=== PATIENT | female | born 1970 | race Caucasian/White ===

== ENCOUNTER 2020-05-19 17:24 | Emergency (ER) | payer MEDICAID, SELFPAY ==
[2020-05-19 17:26] VITALS: BP 155/82; PULSE 96; RESP 16; TEMP 36.6; O2SAT 98; BMI 29.8
--- NOTE | 2020-05-19 17:46 | CT_ITS ---
PROCEDURE: CT ABDOMEN PELVIS W CON CLINICAL INDICATION: abd pain Right upper quadrant pain radiating into COMPARISON: No exams were available for comparison TECHNIQUE: IV Contrast: 75ML OPTIRAY 350 Oral Contrast None Axial images obtained with sagittal and coronal reformats. All CT scans at the facility use one or more dose reduction, viz: automated exposure control, ma/kV adjustment per patient size (including targeted exams where dose is matched to indication, i.e. head), or iterative reconstruction technique. FINDINGS: LOWER THORAX: No acute finding ABDOMEN & PELVIS: 2 mm hypodensity noted in the hepatic dome on the left nonspecific. The gallbladder, spleen adrenal glands, pancreas, and kidneys have an unremarkable appearance. No intestinal obstruction, free air, pannus itis, diverticulitis. The uterus is enlarged and anteverted. The uterus measures 11 7.7 cm with an isodense mass along the right aspect of the uterine fundus 4.8 cm. Endometrial stripe is somewhat prominent and may contain some fluid measuring 7 mm in thickness. There is a complex mixed cystic and solid mass in the right adnexal region at 8 x 5 cm. No pelvic adenopathy or ascites evident. There is degenerative disc disease in the lumbar spine. Mild lumbar scoliosis convex left. 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 Gynecological consult suggested. Enlarged uterus with hypodense changes in the uterine fundus on the right consistent with fibroid and mild prominence of the endometrial stripe. Pelvic ultrasound suggested for further evaluation Dictated b Oswaldo Martin MD 05/20/2020 08:59 Oswaldo Martin MD in [facility] 05/20/2020 08:59
[2020-05-19 18:20] LABS: Microscopic, Urine URINE MICROSCOPIC (MICROSCOPIC)
[2020-05-19 18:26] LABS: Basophils # 0.1 K/mm3 (0-0.2); Basophils % 0.6 % (0.1-2.0); Eosinophils # 0.3 K/mm3 (0.0-0.4); Eosinophils % 3.5 % (0.1-12.0); Hematocrit 46.3 % (37.0-47.0); Hemoglobin 15.7 g/dL (12.2-16.2); Lymphocytes # 3.4 K/mm3 (0.7-4.5); Lymphocytes % 38.2 % (10-50); Mean Corpuscular Volume 88.3 fl (81-99); Mean Platelet Volume 8.3 fl (7.4-10.4); Monocytes # 0.3 K/mm3 (0.1-1.0); Monocytes % 3.2 % (1.7-9.3); Neutrophils # 4.9 K/mm3 (1.8-7.8); Neutrophils % 54.5 % (37.0-80.0); Platelet Count 284 K/mm3 (142-424); Red Blood Count 5.24 M/mm3 (4.20-5.40); Red Cell Distribution Width 13.5 % (11.5-17.5); White Blood Count 8.9 K/mm3 (4.8-10.8)
[2020-05-19 18:32] LABS: Alanine Aminotransferase 22 U/L (12-78); Albumin Level 4.7 g/dl (3.5-5.0); Albumin/Globulin Ratio 1.6 (1.1-1.8); Alkaline Phosphatase 96 U/L (38-126); Amylase 89 U/L (30-110); Anion Gap 16.1 mEq/L (5-15); Aspartate Amino Transferase 32 U/L (14-36); Bilirubin,Total 0.4 mg/dl (0.2-1.3); Blood Urea Nitrogen 10 mg/dl (7-17); Carbon Dioxide 27 mmol/L (22.0-30.0); Chloride 100 mmol/L (98-107); Creatinine Clearance Estimated 145 mL/min (50-200); Estimated Glomerular Filt Rate 105 ml/min (>60); GFR (African American) 127 ML/MIN (>60); Glucose 95 mg/dl (74-100); Lipase 130 U/L (23-300); Potassium 4.1 mmoL/L (3.5-5.1); Sodium 139 mmol/L (136-145); Total Protein,Serum 7.7 g/dl (6.3-8.2)
[2020-05-19 18:38] LABS: Appearance,Urine CLEAR (Clear); Bilirubin,Urine Negative (Negative); Blood, Urine Negative (Negative); Color,Urine YELLOW (Yellow); Glucose,Urine (UA) Negative (Negative); Ketones,Urine Negative (Negative); Leukocyte Esterase,Urine Negative (Negative); Nitrate,Urine Negative (Negative); Protein,Urine Negative (Negative); Specific Gravity, Urine 1.015 (1.005-1.030); Urobilinogen,Urine 0.2 EU/dl (0.2)
[2020-05-19 18:49] LABS: Urine Pregnancy, HCG Qual. Negative (Negative)
[2020-05-19 18:50] LABS: WBC,Urine Occasional #/hpf (0-3)
[2020-05-19 18:51] LABS: Bacteria,Urine Trace /lpf
[2020-05-19 19:26] VITALS: BP 137/77; PULSE 77; RESP 16; O2SAT 98
--- NOTE | 2020-05-19 19:33 | PC.NURSE ---
results received from yenny to . speaking with patient
--- NOTE | 2020-05-19 19:36 | HMH.EDABDPAI ---
ED Disposition Clinical Impression: Ovarian mass, right Disposition: Home, Self-Care Condition on Discharge: Good Instructions: DI for Acute Abdomen Additional Instructions: Please call Dr. Ulrich's office in the a.m. for a appointment. Referrals: PCP,Vero [Primary Care Provider] - Carmelina Ulrich MD [Staff Physician] - - Critical Care Critical Care Time: No Attestation: On 05/19/20, the high probability of a clinically significant, sudden or life threatening deterioration of the following system(s) required my full and direct attention, intervention and personal management. The time I documented below is in addition to time spent performing reported procedures but includes the following listed in this critical care notation. Medical Decision Making - Medical Records Medical records reviewed: Yes: I reviewed the patient's medical records. - Helio Inquiry Pt receiving controlled substance: No Vital Signs: 05/19/20 17:26 05/19/20 19:26 Temperature 98 F Temperature Source Oral Pulse Rate [Right] 96 H 77 Respiratory Rate 16 16 Blood Pressure [Right Arm] 155/82 H 137/77 Blood Pressure Mean [Right Arm] 106 97 Blood Pressure Source [Right Arm] Automatic Cuff Blood Pressure Position [Right Arm] Sitting 02 Sat by Pulse Oximetry 98 98 Oxygen Delivery Method Room Air - Lab Data Lab results reviewed: Yes: I reviewed the patient's lab results. Lab Results 05/19/20 18:00: Urine Color Yellow, Urine Appearance Clear, Urine pH 6.0, Ur Specific [place] 1.015, Urine Protein Negative, Urine Glucose (UA) Negative, Urine Ketones Negative, Urine Blood Negative, Urine Nitrate Negative, Urine Bilirubin Negative, Urine Urobilinogen 0.2, Ur Leukocyte Esterase Negative, Urine WBC Occasional, Ur Squamous Epith Cells 3-5, Urine Bacteria Trace 05/19/20 18:00: WBC 8.9, RBC 5.24, Hgb 15.7, Hct 46.3, MCV 88.3, MCH 30.0, MCHC 34.0, RDW 13.5, Plt Count 284, MPV 8.3, Neut % (Auto) 54.5, Lymph % (Auto) 38.2, [place] % (Auto) 3.2, Eos % (Auto) 3.5, Baso % (Auto) 0.6, Neut # (Auto) 4.9, Lymph # (Auto) 3.4, [place] # (Auto) 0.3, Eos # (Auto) 0.3, Baso # (Auto) 0.1 05/19/20 18:00: Sodium 139, Potassium 4.1, Chloride 100, Carbon Dioxide 27, Anion Gap 16.1 H, BUN 10, Creatinine 0.60, Estimated Creat Clear 145, Estimated GFR 105, Est GFR ( Amer) 127, Glucose 95, Calcium 10.0, Total Bilirubin 0.4, AST 32, ALT 22, Alkaline Phosphatase 96, Total Protein 7.7, Albumin 4.7, Globulin 3.0, Albumin/Globulin Ratio 1.6, Amylase 89, Lipase 130 05/19/20 18:00: Urine HCG, Qual Negative Result diagrams: 05/19/20 18:00 05/19/20 18:00 Orders (Tests/Meds): ED MEDICATIONS Generic Name Dose Route Start Last Admin Trade Name Freq PRN Reason Stop Dose Admin Sodium Chloride 8 ml 05/19/20 18:02 Sodium Chloride 0.9% 10ml Vial IV 06/18/20 18:01 NEEDED PRN dilute pepcid Discontinued Medications Generic Name Dose Route Start Last Admin Trade Name Freq PRN Reason Stop Dose Admin Famotidine 20 mg 05/19/20 18:02 05/19/20 18:11 Pepcid 20mg/2ml Vial IV 05/19/20 18:03 20 mg ONCE ONE Administration Ioversol 75 ml 05/19/20 19:06 05/19/20 19:09 Rad-Optiray 350 100ml Vial IV 05/19/20 19:07 75 ml ONCE ONE Administration Protocol Sodium Chloride 10 ml 05/19/20 19:06 05/19/20 19:09 Rad-Saline Flush 10ml Syringe IV 05/19/20 19:07 10 ml ONCE ONE Administration ORDERS Category Date Time Status CT abdomen pelvis w con Stat Cat Scan 05/19/20 17:46 Taken - CT Data CT Scan: Abdomen, Pelvis Time Received: 19:[address] Reviewed: Yes: I have reviewed the patient's CT results Preliminary Findings: Abnormal (7.5 cm complex right adnexal mass consistent with an ovarian neoplasm possibly malignant) Abdominal Pain HPI - General Chief Complaint: Abdominal Pain Stated Complaint: Pain R Side, in back Time Seen by Provider: 05/19/20 19:00 Mode of Arrival: Ambulatory Source of Information: Bernard Wood
--- NOTE | 2020-05-19 19:37 | PC.NURSE ---
dr higgins returned call.
[2020-05-19 20:03] VITALS: BP 142/63; PULSE 80; RESP 16; TEMP 36.6; O2SAT 97
[2020-05-21 11:20] LABS: Cancer Antigen (CA) 125 9.3 U/mL (0.0-38.1)
== END 2020-05-19 20:12 | disposition home or self-care (01) ==
PROVIDERS: Emergency Provider Family Medicine
DX: N83.8 Other noninflammatory disorders of ovary, fallopian tube and broad ligament (principal); Z88.2 Allergy status to sulfonamides
CPT/HCPCS: 74177; 80053; 81001; 81025; 82150; 83690; 85025; 86316; 96374; 99283; Q9967

== ENCOUNTER 2020-06-24 19:09 | Observation (INO) | payer MEDICAID, SELFPAY ==
[2020-06-24] VITALS (9 sets, daily range): BP systolic 119–147; BP diastolic 53–90; PULSE 16–125; RESP 16–18; TEMP 36.8; O2SAT 95–99; BMI 29.8; BMI 28.5
--- NOTE | 2020-06-24 19:18 | HMH.EDGENADL ---
ED Disposition Condition on Discharge: Good - Critical Care Critical Care Time: No <Fidel Nunez - Last Filed: 06/24/20 19:55> <Jesus Navarro - Last Filed: 06/24/20 22:25> Clinical Impression: Nausea vomiting and diarrhea, SBO (small bowel obstruction), SIRS (systemic inflammatory response syndrome) Abdominal pain Qualifiers: Abdominal location: epigastric Qualified Code(s): R10.13 - Epigastric pain Disposition: Admitted as Observation Referrals: PCP,No [Primary Care Provider] - Attestation: On 06/24/20, the high probability of a clinically significant, sudden or life threatening deterioration of the following system(s) required my full and direct attention, intervention and personal management. The time I documented below is in addition to time spent performing reported procedures but includes the following listed in this critical care notation. Medical Decision Making - Medical Records Medical records reviewed: Yes: I reviewed the patient's medical records. MR Comment: 50-year-old female presents emergency department with nausea, vomiting, diarrhea, and crampy abdominal pain. Had possible fever and mild intermittent cough at home. She arrives the ED hemodynamically stable, with reassuring vital signs, and looks well on exam. Given her recent surgery and complaint of no abdominal pain, will get labs including CT scan and reassess. She may need to be swabbed for coronavirus. Handed off at shift change to Dr. Navarro. - Helio Inquiry Pt receiving controlled substance: No <Fidel Nunez - Last Filed: 06/24/20 19:55> - Lab Data Lab results reviewed: Yes: I reviewed the patient's lab results. 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 Reason -: Pt condition Additional Consult: humaira Reason -: Pt condition Additional Consult: besson Reason -: Admission <Jesus Navarro - Last Filed: 06/24/20 22:25> Vital Signs: 06/24/20 19:22 06/24/20 19:30 06/24/20 20:41 Temperature 98.3 F Temperature Source Oral Pulse Rate [Right Brachial] 125 H 119 H 83 Respiratory Rate 17 18 16 Blood Pressure [Right Arm] 123/63 119/53 L 142/66 H Blood Pressure Mean [Right Arm] 83 75 91 Blood Pressure Source [Right Arm] Automatic Cuff Automatic Cuff Automatic Cuff Blood Pressure Position [Right Arm] Sitting Supine Sitting 02 Sat by Pulse Oximetry 96 97 96 Oxygen Delivery Method Room Air Room Air Room Air 06/24/20 21:10 06/24/20 21:30 06/24/20 21:57 Temperature Temperature Source Pulse Rate [Right Brachial] 16 L 82 94 H Respiratory Rate 17 17 16 Blood Pressure [Right Arm] 143/68 H 141/66 H 143/58 H Blood Pressure Mean [Right Arm] 93 91 86 Blood Pressure Source [Right Arm] Automatic Cuff Automatic Cuff Automatic Cuff Blood Pressure Position [Right Arm] Sitting Supine Sitting 02 Sat by Pulse Oximetry 95 95 96 Oxygen Delivery Method Room Air Room Air Room Air 06/24/20 22:00 Temperature Temperature Source Pulse Rate [Right Brachial] 92 H Respiratory Rate 17 Blood Pressure [Right Arm] 143/58 H Blood Pressure Mean [Right Arm] 86 Blood Pressure Source [Right Arm] Automatic Cuff Blood Pressure Position [Right Arm] Supine 02 Sat by Pulse Oximetry 98 Oxygen Delivery Method Room Air - Lab Data Lab Results 06/24/20 19:40: WBC 18.0 H, RBC 5.01, Hgb 14.2, Hct 43.6, MCV 87.0, MCH 28.4, MCHC 32.6, RDW 14.5, Plt Count 839 H, MPV 7.1 L, Neut % (Auto) 78.8, Lymph % (Auto) 15.8, [place] % (Auto) 2.8, Eos % (Auto) 2.3, Baso % (Auto) 0.4, Neut # (Auto) 14.2 H, Lymph # (Auto) 2.9, [place] # (Auto) 0.5, Eos # (Auto) 0.4, Baso # (Auto) 0.1, Total Counted 100, Neutrophils % (Manual) 74, Lymphocytes % (Manual) 23, Monocytes % (Manual) 3, Platelet Estimate Slight increase, RBC Morphology Normal 06/24/20 19:40
--- NOTE | 2020-06-24 19:33 | CT_ITS ---
PROCEDURE: CT ABDOMEN PELVIS W CON CLINICAL INDICATION: abd pain, needs IV contrast only Abdominal pain with nausea and vomiting, recent hysterectomy COMPARISON: CT CT ABDOMEN PELVIS W CON from 05/19/2020 TECHNIQUE: IV Contrast: 75ML OPTIRAY 350 Oral Contrast None Axial images obtained with sagittal and coronal reformats. All CT scans at the facility use one or more dose reduction, viz: automated exposure control, ma/kV adjustment per patient size (including targeted exams where dose is matched to indication, i.e. head), or iterative reconstruction technique. FINDINGS: LOWER THORAX: There are mild atelectatic changes in the left lung base. ABDOMEN & PELVIS: The liver, spleen, adrenal glands, and pancreas and kidneys have an unremarkable appearance. Gallbladder is somewhat distended. There is a small amount of perihepatic and perisplenic fluid. Proximal small bowel loops are mildly dilated measuring up to 3.7 cm with thickened edematous wall and air-fluid levels. The distal small bowel loops and colon are decompressed.. There has been an interval hysterectomy and right oophorectomy. Fluid is present in the pelvis. There is a small umbilical hernia containing fat. The fluid in the pelvic region is slightly more dense than the fluid in the perihepatic area and could be related to hemorrhage or infection or neoplasm. No definite intraperitoneal abscess. There is a new heterogeneous collection in the anterior lower pelvic area in the prevesical space indenting the urinary bladder between the rectus muscles anteriorly and may represent a postoperative hematoma slightly epicentered toward the right. This measures 6 by 4 cm by 4 cm. No acute bony findings. IMPRESSION: 1. Status post hysterectomy and right oophorectomy. Heterogeneous collection noted in the prevesical space slightly toward the right consistent with postoperative hematoma. Suggest follow-up to confirm resolution. Cannot exclude superimposed infection. 2. Abnormal appearance of the small bowel which is slightly dilated with scattered air-fluid levels with edematous wall. There is decompression of the distal small bowel. These findings could be related to either enteritis or partial small bowel obstruction. No free air is evident. 3. There is a small amount of intraperitoneal fluid which is somewhat hyperdense in the pelvic region which could be related to blood, infection, or neoplasm Dictated by: Oswaldo Martin MD 06/25/2020 05:43 Oswaldo Martin MD in [facility] 06/25/2020 05:43
[2020-06-24 19:49] LABS: Basophils # 0.1 K/mm3 (0-0.2); Basophils % 0.4 % (0.1-2.0); Eosinophils # 0.4 K/mm3 (0.0-0.4); Eosinophils % 2.3 % (0.1-12.0); Hematocrit 43.6 % (37.0-47.0); Hemoglobin 14.2 g/dL (12.2-16.2); Lymphocytes # 2.9 K/mm3 (0.7-4.5); Lymphocytes % 15.8 % (10-50); Mean Corpuscular HGB Conc 32.6 g/dL (31.8-35.4); Mean Corpuscular Hemoglobin 28.4 pg (27.0-31.2); Mean Platelet Volume 7.1 fl (7.4-10.4); Monocytes # 0.5 K/mm3 (0.1-1.0); Monocytes % 2.8 % (1.7-9.3); Neutrophils # 14.2 K/mm3 (1.8-7.8); Neutrophils % 78.8 % (37.0-80.0); Platelet Count 839 K/mm3 (142-424); Red Blood Count 5.01 M/mm3 (4.20-5.40); Red Cell Distribution Width 14.5 % (11.5-17.5)
[2020-06-24 20:00] LABS: Chloride 95 mmol/L (98-107); MANUAL DIFFERENTIAL MANUAL DIFFERENTIAL (MANUAL DIFF); Potassium 3.4 mmoL/L (3.5-5.1); Sodium 134 mmol/L (136-145)
[2020-06-24 20:02] LABS: Blood Urea Nitrogen 13 mg/dl (7-17); Creatinine Clearance Estimated 145 mL/min (50-200); Estimated Glomerular Filt Rate 105 ml/min (>60); GFR (African American) 127 ML/MIN (>60); Lipase 71 U/L (23-300)
[2020-06-24 20:03] LABS: Alanine Aminotransferase 19 U/L (12-78); Albumin Level 3.7 g/dl (3.5-5.0); Albumin/Globulin Ratio 1.3 (1.1-1.8); Alkaline Phosphatase 116 U/L (38-126); Anion Gap 13.4 mEq/L (5-15); Aspartate Amino Transferase 24 U/L (14-36); Bilirubin,Total 0.9 mg/dl (0.2-1.3); Calcium 9.6 mg/dl (8.4-10.2); Carbon Dioxide 29 mmol/L (22.0-30.0); Globulin 2.8 g/dL (1.3-3.2); Glucose 146 mg/dl (74-100); Lactic Acid 1.5 mmol/L (0.7-2.1); Total Protein,Serum 6.5 g/dl (6.3-8.2)
[2020-06-24 20:13] LABS: Lymphocytes % 23 % (10-50); Monocytes % 3 % (2-9); Neutrophils % 74 % (42-76); Total Cells Counted 100
[2020-06-24 20:14] LABS: Platelet Estimate Slight Increase; RBC Morphology Normal
--- NOTE | 2020-06-24 21:37 | PC.NURSE ---
calling [facility] to speak to dr. urena or who is [facility]. dr. lopez is [facility] for oncology. awaiting for dr. lopez at this time.
--- NOTE | 2020-06-24 21:56 | PC.NURSE ---
speaking to dr. mckeon with oncology at this time.
--- NOTE | 2020-06-24 22:00 | PC.NURSE ---
accepted and they are checking on bed status.
--- NOTE | 2020-06-24 22:05 | PC.NURSE ---
on phone with at this time
--- NOTE | 2020-06-24 22:08 | PC.NURSE ---
has no beds. call out for sr humaira at this time for possible admission here.
--- NOTE | 2020-06-24 22:10 | PC.NURSE ---
on phone with dr gerardo
--- NOTE | 2020-06-24 22:16 | PC.NURSE ---
call out to dr alberto
--- NOTE | 2020-06-24 22:22 | PC.NURSE ---
dr alberto accepted pt for admission. dr bansal advised to admit pt as observation.
[2020-06-24 22:32] LABS: Coronavirus 19 IgG Antibody Negative (Negative); Coronavirus 19 IgM Antibody Negative (Negative)
--- NOTE | 2020-06-24 23:11 | PC.NURSE ---
PT ARRIVED TO THE FLOOR VIA W/C FROM ED AT [id number]
--- NOTE | 2020-06-24 23:22 | PC.NURSE ---
Pt states she does not take any daily meds usually. Since having sx at on 06-12-20 she was placed on a few new medications which she is unaware of the names and dosages. Meds were filled with meds to bed program. Daughter at bedside states she will bring in her medication bottles in the am for med rec to be completed. Pt also states she has not taken any of her prescribed medications for 2 days now due to persistent N/V/D.
--- NOTE | 2020-06-25 02:57 | PC.NURSE ---
Pt is alert and oriented x4. Pt rested well this shift with eyes closed. PERRLA. Bilateral hand director [employer] noted equal and strong. Cap refill < 3 seconds. Bilateral breath sounds noted clear t/o upon auscultation. Tolerated RA well with no c/o SOA. Abdominal tenderness noted to upper abdomen and lateral right quadrant. Upon arriving to the unit pt states nausea and abdominal pain. This RN administered Morphine and Zofran per DEC. Upon reassessment pt noted resting with eyes closed but easily awakened with walking in room. Denies any further nausea or abd pain. Sx incision with steri strips intact noted to midline abdomen below the umbilicus to pubic region. Noted c/d/i. Remains NPO. Applied heat pack and warm blanket to abdominal region for pain relief. Pt tolerated well. Independent with ambulation in room. Pt aware UA needs to be collected, has not gone to the bathroom thus far since arriving to unit. No edema noted. Refused TEDS. VSS. Remains safe. Call light within reach. Will continue to monitor.
[2020-06-25 04:00] VITALS: BP 129/67; PULSE 92; RESP 16; TEMP 37; O2SAT 95
[2020-06-25 06:00] VITALS: BMI 28.4
[2020-06-25 06:50] LABS: Microscopic, Urine URINE MICROSCOPIC (MICROSCOPIC)
[2020-06-25 06:52] LABS: Appearance,Urine SL CLOUDY (Clear); Bilirubin,Urine Negative (Negative); Blood, Urine Negative (Negative); Color,Urine DK YELLOW (Yellow); Glucose,Urine (UA) Negative (Negative); Ketones,Urine 1+ (Negative); Leukocyte Esterase,Urine Negative (Negative); Nitrate,Urine Negative (Negative); Protein,Urine Negative (Negative); Urobilinogen,Urine 0.2 EU/dl (0.2)
--- NOTE | 2020-06-25 06:56 | FL_ITS ---
PROCEDURE: FL SMALL BOWEL FOLLOW THROUGH CLINICAL INDICATION: SBO vs. enteritis Nausea and vomiting, abnormal CT scan, thickened small bowel loops COMPARISON: CT CT ABDOMEN PELVIS W CON from 06/24/2020 FINDINGS: Fluoroscopy time: 1 minutes and 33 seconds. Serial KUBs are performed at 30 minute intervals following the oral ingestion a mixture of Gastrografin and barium. There is moderate delayed transit of contrast through the small bowel. The proximal small bowel loops are not dilated to the mid jejunal region. Mid jejunal loops do become dilated. These loops do not show vigorous peristalsis with only minimal peristalsis. This also involves the proximal to mid ileum. The contrast becomes dilute at approximately 2-1/2 hours with poor opacification of the bowel. Bowel loops do appear thickened in the proximal and mid ileum. The distal ileum is normal in caliber with normal peristalsis. A transitional point is not identified as the barium does become very dilute and the patient could not tolerate palpation IMPRESSION: 1. Overall, the findings are not consistent with small bowel obstruction 2. There are mildly dilated jejunal and ileal loops with some thickening of the ileal loops with very poor peristalsis consistent with ileus/enteritis. A transition point is not identified. Dictated by: Oswaldo Martin MD 06/25/2020 15:58 Oswaldo Martin MD in [facility] 06/25/2020 15:58
--- NOTE | 2020-06-25 07:00 | HMH.GSCON ---
*Admission Date: 06/24/20 *Reason for consult:: Small bowel obstruction versus enteritis *History of present illness: This is a 50-year-old female who recently was discharged from the [facility] after undergoing hysterectomy. She had initially progressed well but did have episodes of constipation and diarrhea postoperatively. Over the past few days she has had increasing abdominal discomfort and nausea. She presented to the emergency department at [facility] where she was diagnosed with small bowel obstruction versus enteritis per CT scan. The [facility] was on divert and unable to accept the patient in transfer. This morning she continues to be nauseous but states that she has had no emesis. She claims to have had a fairly normal bowel movement either yesterday or the day before . She has not had a bowel movement since and is currently not passing flatus. HPI from emergency department evaluation: - History of Present Illness HPI narrative: 50-year-old female presents emergency department with nausea, vomiting, diarrhea over the last 2 days. She also states she has had chills and cold sweats. She denies anything makes her pain better or worse, abdominal pain is crampy and in the upper abdomen. She states that she was admitted to and had a hysterectomy on the fourth of this month and was discharged on the seventh she was doing okay for a couple of days before the symptoms started. She denies lower abdominal pain. She denies any dysuria. Also had a cough intermittently, which is new for her. No other known symptoms or concerns at this time. (Fidel Nunez) Review of Systems - Constitutional Denies chills - Eyes Denies change in vision - ENT Denies difficulty swallowing - *Cardiovascular Denies chest pain - *Respiratory Denies cough - *Gastrointestinal Reports abdominal pain, Reports nausea - *Genitourinary Denies painful urination - *Musculoskeletal Denies deformity - Integumentary/Breasts Denies new lesions - *Neurologic Denies abnormal movements - Psychiatric Denies anxiety - Endocrine Denies cold intolerance - Hematologic/Lymphatic Denies easy bleeding - Allergic/Immunologic Denies wheezing [facility] History Medical History: Denies:: Cancer, Diabetes Mellitus Type 1, Diabetes Mellitus Type 2, MRSA *Have you ever received a pneumonia vaccine?: No *Have you received a flu vaccine this season?: No Other Surgeries: Yes: Colonoscopy, Hysterectomy-Total Amputation: No Fractures: No - *Social History Last grade of school completed: Some college Smoking Status: Current some day smoker Tobacco Type: cigarettes # Packs/Day (cigarettes): 1 Alcohol Intake: current Alcohol Intake Frequency:: holidays/special occasions only Substance Use Type: denies use *Occupational Status:: unemployed Housing: house Household Members: children *Travel in the last 8 weeks: None Family Hx:: Cancer, Diabetes, Heart Attack, Hyperlipidemia, Hypertension Meds Home Medications Medication Instructions Recorded Confirmed Type No Known Home Medications 05/20/20 06/24/20 History Allergies Allergy/AdvReac Type Severity Reaction Status Date / Time bupropion [From Wellbutrin] Allergy Verified 06/24/20 19:48 Sulfa (Sulfonamide Allergy Verified 06/24/20 19:48 Antibiotics) Exam Vital signs and Labs for Last 24 Hours: Temp Pulse Resp BP Pulse Ox 98.6 F 92 H 16 129/67 95 06/25/20 04:00 06/25/20 04:00 06/25/20 04:00 06/25/20 04:00 06/25/20 04:00 Laboratory Results - last 24 hr 06/24/20 19:40: WBC 18.0 H, RBC 5.01, Hgb 14.2, Hct 43.6, MCV 87.0, MCH 28.4, MCHC 32.6, RDW 14.5, Plt Count 839 H, MPV 7.1 L, Neut % (Auto) 78.8, Lymph % (Auto) 15.8, [place] % (Auto) 2.8, Eos % (Auto) 2.3, Baso % (Auto) 0.4, Neut # (Auto) 14.2 H, Lymph # (Auto) 2.9, [place] # (Auto) 0.5, Eos # (Auto) 0.4, Baso # (Auto) 0.1, Total Counted 100, Neutrophils % (Manual) 74, L
[2020-06-25 07:13] LABS: Bacteria,Urine 2+ /lpf; Fine Granular Casts,Urine Occasional #/lpf (0); Mucus,Urine 2+ /lpf
[2020-06-25 07:26] VITALS: BP 133/70; PULSE 95; RESP 20; TEMP 36.6; O2SAT 95
[2020-06-25 07:45] VITALS: O2SAT 95
--- NOTE | 2020-06-25 07:59 | HMH.HP ---
*Admission Date: 06/24/20 *Chief complaint: Abdominal pain/vomiting *History of present illness: This is a 50-year-old female who recently was discharged from the [facility] after undergoing hysterectomy. She had initially progressed well but did have episodes of constipation and diarrhea postoperatively. Over the past few days she has had increasing abdominal discomfort and nausea. She presented to the emergency department at [facility] where she was diagnosed with small bowel obstruction versus enteritis per CT scan. The [facility] was on divert and unable to accept the patient in transfer. This morning she continues to be nauseous but states that she has had no emesis. She claims to have had a fairly normal bowel movement either yesterday or the day before . She has not had a bowel movement since and is currently not passing flatus. Above note per surgery consult. Patient had gynecologic surgery at [facility] and fortunately biopsies of a very suspicious ovarian mass are reportedly negative. Medical record deficit noted, we will try to get actual records and path reports today. Surgery note as above. Patient has otherwise no surgical history except for a laparoscopic procedure greater than 15 years ago with removal of uterine fibroids. [facility] History I have reviewed the patient's past medical history: Yes Medical History: Denies:: Cancer, Diabetes Mellitus Type 1, Diabetes Mellitus Type 2, MRSA *Have you ever received a pneumonia vaccine?: No *Have you received a flu vaccine this season?: No Other Surgeries: Yes: Colonoscopy, Hysterectomy-Total Amputation: No Fractures: No - *Social History Last grade of school completed: Some college Smoking Status: Current some day smoker Tobacco Type: cigarettes # Packs/Day (cigarettes): 1 Alcohol Intake: current Alcohol Intake Frequency:: holidays/special occasions only Substance Use Type: denies use *Occupational Status:: unemployed Housing: house Household Members: children *Travel in the last 8 weeks: None Family Hx:: Cancer, Diabetes, Heart Attack, Hyperlipidemia, Hypertension Review of Systems - Review of Systems Review of systems:: pertinent systems reviewed and negative unless documented below - *Neurologic Denies abnormal movements Meds Home Medications Medication Instructions Recorded Confirmed Type No Known Home Medications 05/20/20 06/24/20 History Allergies Allergy/AdvReac Type Severity Reaction Status Date / Time bupropion [From Wellbutrin] Allergy Verified 06/24/20 19:48 Sulfa (Sulfonamide Allergy Verified 06/24/20 19:48 Antibiotics) Exam Vital signs and Labs for Last 24 Hours: Temp Pulse Resp BP Pulse Ox 97.9 F 95 H 20 133/70 95 06/25/20 07:26 06/25/20 07:26 06/25/20 07:26 06/25/20 07:26 06/25/20 07:26 Laboratory Results - last 24 hr 06/24/20 19:40: WBC 18.0 H, RBC 5.01, Hgb 14.2, Hct 43.6, MCV 87.0, MCH 28.4, MCHC 32.6, RDW 14.5, Plt Count 839 H, MPV 7.1 L, Neut % (Auto) 78.8, Lymph % (Auto) 15.8, [place] % (Auto) 2.8, Eos % (Auto) 2.3, Baso % (Auto) 0.4, Neut # (Auto) 14.2 H, Lymph # (Auto) 2.9, [place] # (Auto) 0.5, Eos # (Auto) 0.4, Baso # (Auto) 0.1, Total Counted 100, Neutrophils % (Manual) 74, Lymphocytes % (Manual) 23, Monocytes % (Manual) 3, Platelet Estimate Slight increase, RBC Morphology Normal 06/24/20 19:40: Sodium 134 L, Potassium 3.4 L, Chloride 95 L, Carbon Dioxide 29, Anion Gap 13.4, BUN 13, Creatinine 0.60, Estimated Creat Clear 145, Estimated GFR 105, Est GFR ( Amer) 127, Glucose 146 H, Calcium 9.6, Total Bilirubin 0.9, AST 24, ALT 19, Alkaline Phosphatase 116, Total Protein 6.5, Albumin 3.7, Globulin 2.8, Albumin/Globulin Ratio 1.3 06/24/20 19:40: Lactate 1.5 06/24/20 19:40: Lipase 71 06/24/20 19:40: SARS-CoV-2 IgG Ab (Rapid) Negative, SARS-CoV-2 IgM Ab (Rapid) Negative 06/25/20 06:35: Urine Color Dk yellow, Urine Appearance Sl cloudy, Urine pH 6.0, Ur
--- NOTE | 2020-06-25 08:20 | PC.NURSE ---
PT TRANSFERRED TO RADIOLOGY VIA WHEELCHAIR FOR SB FOLLOW THROUGH.
[2020-06-25 08:47] LABS: Basophils # 0.1 K/mm3 (0-0.2); Basophils % 0.4 % (0.1-2.0); Eosinophils # 0.4 K/mm3 (0.0-0.4); Eosinophils % 2.5 % (0.1-12.0); Hematocrit 35.6 % (37.0-47.0); Lymphocytes # 2.4 K/mm3 (0.7-4.5); Lymphocytes % 15.3 % (10-50); Mean Corpuscular HGB Conc 33.4 g/dL (31.8-35.4); Mean Corpuscular Hemoglobin 29.5 pg (27.0-31.2); Mean Corpuscular Volume 88.2 fl (81-99); Mean Platelet Volume 7.1 fl (7.4-10.4); Monocytes # 0.7 K/mm3 (0.1-1.0); Monocytes % 4.5 % (1.7-9.3); Neutrophils # 11.9 K/mm3 (1.8-7.8); Neutrophils % 77.1 % (37.0-80.0); Platelet Count 709 K/mm3 (142-424); Red Blood Count 4.04 M/mm3 (4.20-5.40); Red Cell Distribution Width 14.4 % (11.5-17.5); White Blood Count 15.4 K/mm3 (4.8-10.8)
[2020-06-25 08:49] LABS: Anion Gap 9.4 mEq/L (5-15); Blood Urea Nitrogen 15 mg/dl (7-17); Calcium 8.7 mg/dl (8.4-10.2); Carbon Dioxide 31 mmol/L (22.0-30.0); Chloride 98 mmol/L (98-107); Creatinine Clearance Estimated 139 mL/min (50-200); Estimated Glomerular Filt Rate 105 ml/min (>60); GFR (African American) 127 ML/MIN (>60); Glucose 108 mg/dl (74-100); Potassium 3.4 mmoL/L (3.5-5.1); Sodium 135 mmol/L (136-145)
[2020-06-25 08:54] LABS: MANUAL DIFFERENTIAL MANUAL DIFFERENTIAL (MANUAL DIFF)
--- NOTE | 2020-06-25 08:56 | P.CONPHA_ITS ---
[facility] Pharmacy VTE Monitoring - Patient Demographics Admission date: 06/24/20 Report Date: 06/25/20 Time: 08:56 Allergies/Adverse Reactions: Patient Allergies bupropion [From Wellbutrin] Allergy (Verified 06/24/20 19:48) Sulfa (Sulfonamide Antibiotics) Allergy (Verified 06/24/20 19:48) Height: 1.68 m Weight: 80.286 kg Patient Problems: Current Active Problems Nausea vomiting and diarrhea (Acute) Abdominal pain (Acute) SBO (small bowel obstruction) (Acute) SIRS (systemic inflammatory response syndrome) (Acute) - VTE Risk Labs: VTE Related Lab Results Hgb 14.2 g/dL (12.2-16.2) 06/24/20 19:40 Hct 35.6 % (37.0-47.0) L 06/25/20 07:08 Plt Count 709 K/mm3 (142-424) H 06/25/20 07:08 BUN 13 mg/dl (7-17) 06/24/20 19:40 Creatinine 0.60 mg/dl (0.52-1.04) 06/24/20 19:40 Estimated Creat Clear 145 mL/min (50-200) 06/24/20 19:40 Was VTE Risk Assessment Performed: Yes VTE Score: 3 VTE Risk Level: Low Risk - Prophylaxis VTE Prophylaxis Ordered?: Yes Types of VTE Prophylaxis: TEDS Knee High Location of Applied Device: Bilateral Lower Extremeties
[2020-06-25 09:09] LABS: Eosinophils % 1 % (0-3); Lymphocytes % 12 % (10-50); Monocytes % 2 % (2-9); Neutrophils % 83 % (42-76); Platelet Estimate Marked Increase; RBC Morphology Normal; Total Cells Counted 100
[2020-06-25 10:05] LABS: Hemoglobin 11.9 g/dL (12.2-16.2)
[2020-06-25 15:20] VITALS: BP 124/58; PULSE 84; RESP 20; TEMP 36.8; O2SAT 96
--- NOTE | 2020-06-25 16:59 | PC.NURSE ---
A&OX4. PT HAS TOLERATED ROOM AIR WELL THROUGHOUT SHIFT. RESPIRATIONS REGULAR AND UNLABORED. LUNG SOUNDS BILATERALLY CLEAR. ACTIVE BOWEL SOUNDS HEARD IN ALL 4 QUADRANTS. SOFT AND NONTENDER ABDOMEN BUT HAS BEEN TENDER AT TIMES THROUGHOUT THE SHIFT. NO BM THUS FAR. NO REPORTS OF GAS BUT HAS BEEN BELCHING. VOIDS PER BATHROOM WITH INDEPENDENT MOBILITY. STEADY GAIT NOTED. NO EDEMA NOTED. 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 TEDS IN PLACE. PT HAS BEEN VERY NAUSEOUS ON SEVERAL OCCASIONS THROUGHOUT SHIFT. PT REPORTED PAIN ONCE AND WAS ADMINISTERED MORPHINE PER DEC. ON REASSESSMENT. PT STATES NAUSEA HAD EASED AND PAIN HAD DECREASED AND TOLERABLE. NS INFUSING AT 100ML/HR. PT HAS REMAINED NPO THROUGHOUT SHIFT. PT CURRENTLY LYING IN BED W CALL LIGHT WITHIN REACH. BED IN LOWEST POSITION. VSS. WILL CONTINUE TO MONITOR.
[2020-06-25 19:52] VITALS: BP 136/66; PULSE 90; RESP 17; TEMP 36.8; O2SAT 96
[2020-06-25 20:23] VITALS: O2SAT 96
--- NOTE | 2020-06-26 03:31 | PC.NURSE ---
Pt is A&Ox4 and has ambulated OOB 1x thus far and tolerated well. Pt received Phenergan IV prior to change of shift and pt has rested well this shift. Pt had good response to phenergan and has denied any further nausea. Pt has denied any pain thus far. ABD is soft, tender near incision, active BS and last reported BM is 06/23/20. Lungs CTA, room air SaO2 96%. No edema noted & peripheral pulses 2+. Midline incision from prev. surgery from below umbilicus to above pubis, steri-strips in place. Incision is clean, dry and healing borders. TEDS in place to BLE. VSS, call light within reach will continue to monitor.
[2020-06-26 04:00] VITALS: BP 131/73; PULSE 93; RESP 16; TEMP 36.9; O2SAT 97
--- NOTE | 2020-06-26 06:00 | XR_ITS ---
PROCEDURE: XR ACUTE ABDOMEN SERIES CLINICAL INDICATION: sbo vs. enteritis Abdominal pain with nausea and vomiting COMPARISON: CR,DX,RF FL SMALL BOWEL FOLLOW THROUGH from 06/25/2020 FINDINGS: Frontal view of the chest shows no acute finding. Upright and supine views of the abdomen demonstrates contrast within both large and small bowel. There remains mildly prominent small bowel loops in the mid abdominal region with air-fluid levels with thickened small bowel loops consistent with enteritis/ileus. No free air. The appendix does fill with contrast. IMPRESSION: Persistent mildly dilated and thickened central small bowel loops suggesting ileus/enteritis. No high-grade bowel obstruction. Dictated by: Oswaldo Martin MD 06/26/2020 06:31 Oswaldo Martin MD in [facility] 06/26/2020 06:31
--- NOTE | 2020-06-26 06:09 | PC.NURSE ---
Pt off floor via wheelchair to radiology @ [id number]. Pt returned at this time.
[2020-06-26 06:23] VITALS: BMI 28.5
--- NOTE | 2020-06-26 07:06 | P.PN_ITS ---
Subjective Patient reports: feels better, pain is less, flatus (Minimal flatus on one occasion), no bowel movement Progress Note: A&P (1) Abdominal pain Status: Acute Assessment and plan: Pain improved this morning Current Visit: Yes (2) Nausea vomiting and diarrhea Status: Acute Assessment and plan: Overall improved nausea; however, she is still requiring medication. Trial of clear liquids Current Visit: Yes (3) SBO (small bowel obstruction) Status: Ruled-out Assessment and plan: No complete obstruction noted on abdominal films. All radiographic changes more consistent with ileus/enteritis. Continue serial abdominal exams Continued management as per primary service Current Visit: Yes (4) Enteritis Status: Acute Current Visit: Yes Exam Vital signs and Labs for Last 24 Hours: Temp Pulse Resp BP Pulse Ox 98.4 F 93 H 16 131/73 97 06/26/20 04:00 06/26/20 04:00 06/26/20 04:00 06/26/20 04:00 06/26/20 04:00 Laboratory Results - last 24 hr 06/25/20 06:35: Urine Color Dk yellow, Urine Appearance Sl cloudy, Urine pH 6.0, Ur Specific [place] 1.010, Urine Protein Negative, Urine Glucose (UA) Negative, Urine Ketones 1+, Urine Blood Negative, Urine Nitrate Negative, Urine Bilirubin Negative, Urine Urobilinogen 0.2, Ur Leukocyte Esterase Negative, Urine RBC 3-5, Urine WBC 5-10, Ur Squamous Epith Cells 5-10, Urine Bacteria 2+, Fine Granular Casts Occasional, Urine Mucus 2+ 06/25/20 07:08: WBC 15.4 H, RBC 4.04 L, Hgb 11.9 L D, Hct 35.6 L, MCV 88.2, MCH 29.5, MCHC 33.4, RDW 14.4, Plt Count 709 H, MPV 7.1 L, Neut % (Auto) 77.1, Lymph % (Auto) 15.3, [place] % (Auto) 4.5, Eos % (Auto) 2.5, Baso % (Auto) 0.4, Neut # (Auto) 11.9 H, Lymph # (Auto) 2.4, [place] # (Auto) 0.7, Eos # (Auto) 0.4, Baso # (Auto) 0.1, Total Counted 100, Neutrophils % (Manual) 83 H, Band Neutrophils % 2.0, Lymphocytes % (Manual) 12, Monocytes % (Manual) 2, Eosinophils % (Manual) 1, Platelet Estimate Marked increase, RBC Morphology Normal 06/25/20 07:08: Sodium 135 L, Potassium 3.4 L, Chloride 98, Carbon Dioxide 31 H, Anion Gap 9.4, BUN 15, Creatinine 0.60, Estimated Creat Clear 139, Estimated GFR 105, Est GFR ( Amer) 127, Glucose 108 H D, Calcium 8.7 I & O for Last 24 hours: Intake & Output 06/23/20 06/24/20 06/25/20 06/26/20 11:59 11:59 11:59 11:59 Intake Total 583 / 583 652 / 652 Output Total 600 / 600 750 / 750 Balance -17 / -17 -98 / -98 Weight 177 lb 178 lb Microbiology Reports for the Last 24 Hours: Microbiology 06/25/20 06:35 Urine,Clean Catch Urine Culture - Preliminary NO GROWTH AFTER 24 HOURS Radiology Reports for the Last 24 Hours: Morning flat and upright films reveal contrast within the colon. Some thickened small bowel loops with some persistent dilatation noted. All changes more consistent with ileus. - Constitutional no acute distress - *Routine Respiratory Exam Absent: respiratory distress - *Routine Cardiovascular Exam Present: RRR - *Routine Abdominal Exam Present: soft Comments: Much less tender
--- NOTE | 2020-06-26 07:52 | HMH.ACPN2 ---
Internal Medicine - PN: Subj *Date: 06/26/20 *Time: 11:50 Interval history: Did well overnight. No vomiting, had mild but improved nausea. Single episode of passing flatus. Urinating well but urine darker per her report.. Remains afebrile. Bili pain improving. No shortness of breath, cough, chest pain, palpitations, dizziness or fatigue Exam Vital signs and Labs for Last 24 Hours: Temp Pulse Resp BP Pulse Ox 98.4 F 93 H 16 131/73 97 06/26/20 04:00 06/26/20 04:00 06/26/20 04:00 06/26/20 04:00 06/26/20 04:00 Laboratory Results - last 24 hr 06/25/20 07:08: WBC 15.4 H, RBC 4.04 L, Hgb 11.9 L D, Hct 35.6 L, MCV 88.2, MCH 29.5, MCHC 33.4, RDW 14.4, Plt Count 709 H, MPV 7.1 L, Neut % (Auto) 77.1, Lymph % (Auto) 15.3, [place] % (Auto) 4.5, Eos % (Auto) 2.5, Baso % (Auto) 0.4, Neut # (Auto) 11.9 H, Lymph # (Auto) 2.4, [place] # (Auto) 0.7, Eos # (Auto) 0.4, Baso # (Auto) 0.1, Total Counted 100, Neutrophils % (Manual) 83 H, Band Neutrophils % 2.0, Lymphocytes % (Manual) 12, Monocytes % (Manual) 2, Eosinophils % (Manual) 1, Platelet Estimate Marked increase, RBC Morphology Normal 06/25/20 07:08: Sodium 135 L, Potassium 3.4 L, Chloride 98, Carbon Dioxide 31 H, Anion Gap 9.4, BUN 15, Creatinine 0.60, Estimated Creat Clear 139, Estimated GFR 105, Est GFR ( Amer) 127, Glucose 108 H D, Calcium 8.7 I & O for Last 24 hours: Intake & Output 06/23/20 06/24/20 06/25/20 06/26/20 23:59 23:59 23:59 23:59 Intake Total 1225 / 1235 Output Total 1350 / 1350 Balance -125 / -115 Weight 80.286 kg 80.286 kg 80.739 kg Microbiology Reports for the Last 24 Hours: Microbiology 06/25/20 06:35 Urine,Clean Catch Urine Culture - Preliminary - Constitutional no acute distress - *Routine HEENT Exam Head: Present: normocephalic Eye: Present: EOMI, PERRL ENT: Present: mucous membranes moist - *Routine Neck Exam Present: supple. Absent: lymphadenopathy - *Routine Respiratory Exam Present: CTA bilaterally - *Routine Cardiovascular Exam Present: RRR - *Routine Abdominal Exam Present: soft, tenderness (Most prominent across upper abdomen) Comments: Bowel sounds hypoactive. Clean dry and intact midline lower abdominal incision from umbilicus to pubis. No erythema or warmth - *Routine Extremities Exam Absent: cyanosis, clubbing, edema - *Routine Skin Exam Present: warm. Absent: rash - *Routine Neurological Exam Present: alert, oriented X3 Assessment and Plan (1) Abdominal pain Current visit: Yes Status: Acute Qualifiers: Abdominal location: epigastric Qualified Code(s): R10.13 - Epigastric pain Category: Medical Code(s): R10.9 - Unspecified abdominal pain (2) Nausea vomiting and diarrhea Current visit: Yes Status: Acute Category: Medical Code(s): R11.2 - Nausea with vomiting, unspecified; R19.7 - Diarrhea, unspecified (3) SBO (small bowel obstruction) Current visit: Yes Status: Ruled-out Category: Medical Code(s): K56.609 - Unspecified intestinal obstruction, unspecified as to partial versus complete obstruction (4) Enteritis Current visit: Yes Status: Acute Category: Medical Code(s): K52.9 - Noninfective gastroenteritis and colitis, unspecified - Assessment and plan all Dx Assessment and Plan for all problems:: 50-year-old female status post abdominal surgery to remove round ligament growth. Subsequently developed ileus/ileitis. Has had bowel rest being n.p.o. for the past 36 to 48 hours. Improving clinically. Will advance diet today to clear liquids. Continue IV fluids for now pending p.o. tolerance of fluids. Continue Phenergan for nausea. Continues to require inpatient management.
[2020-06-26 08:00] VITALS: BP 134/68; PULSE 94; RESP 16; TEMP 36.9; O2SAT 94
[2020-06-26 14:26] LABS: Adenovirus F 40/41, stool Not Detected (NotDetected); Astrovirus Not Detected (NotDetected); Campylobacter Not Detected (NotDetected); Clostridium Difficile A/B, PCR Not Detected (NotDetected); Cryptosporidium Not Detected (NotDetected); Cyclospora Cayetanesis Not Detected (NotDetected); Entamoeba histolytica Not Detected (NotDetected); Enteroaggregative E coli Not Detected (NotDetected); Enteropathogenic E coli Not Detected (NotDetected); Enterotoxigenic E coli Not Detected (NotDetected); Giardia lamblia Not Detected (NotDetected); Norovirus Not Detected (NotDetected); Plesimonas Shigalloides, PCR Not Detected (NotDetected); Rotavirus A Not Detected (NotDetected); Salmonella, PCR Not Detected (NotDetected); Sapovirus Not Detected (NotDetected); Shiga-like toxin E coli Not Detected (NotDetected); Shigella Enterovasive E coli Not Detected (NotDetected); Vibrio Cholerae Not Detected (NotDetected); Vibrio, PCR Not Detected (NotDetected); Yersinia Entercolitica, PCR Not Detected (NotDetected)
[2020-06-26 16:00] VITALS: BP 123/62; PULSE 93; RESP 16; TEMP 36.9; O2SAT 96
--- NOTE | 2020-06-26 19:12 | PC.NURSE ---
report given to virgil
[2020-06-26 20:24] VITALS: BP 152/74; PULSE 88; RESP 16; TEMP 36.8; O2SAT 94
--- NOTE | 2020-06-27 03:20 | PC.NURSE ---
pt A&OX4. lungs CTA pt denies SOA. pt c/o nausea and abd pain medicated per DEC. BS active in all quads. midline incision c/d/i with steri strips in place. pt has ambulated independently to BR. No BM this shift
[2020-06-27 05:28] VITALS: BP 150/78; PULSE 86; RESP 16; TEMP 36.9; O2SAT 94; BMI 30.5
--- NOTE | 2020-06-27 05:39 | PC.NURSE ---
pt off floor via WC with xray
--- NOTE | 2020-06-27 05:40 | PC.NURSE ---
patient off floor to radiology.
--- NOTE | 2020-06-27 05:56 | PC.NURSE ---
patient back up to floor per staff.
--- NOTE | 2020-06-27 06:00 | XR_ITS ---
PROCEDURE: XR ACUTE ABDOMEN SERIES Referring Doctor: Domingo Simpson Patient Age:50Y CLINICAL INDICATION: sbo vs. enteritis. Hysterectomy and fibroid tumors removed 2 weeks ago. Currently complains of abdominal pain and vomiting COMPARISON: Acute abdominal series from 06/26/2020,. The small-bowel follow-through 06/25/2020. CT abdomen 06/24/2020 and 05/19/2020 FINDINGS: FLAT AND UPRIGHT VIEWS ABDOMEN radiographs: Dilated small bowel loops persist, with scant the improvement since yesterday acute abdominal series. We continue to see multiple dilated small bowel loops largest measure up to 4.7 cm similar to yesterday's study, but some the other small bowel loops are perhaps not quite as distended with gas today . Also note slight progressive movement of oral contrast from recent SPFT from distal small bowel continuing through entire large bowel to the rectum, with slight diminished overall residual barium the contrast from within large bowel overall suggesting some passage of minimal stool per rectum... Again findings continue suggest a very slowly resolving ileus with possibly a resolving minimal partial distal small-bowel obstruction component.-Again note the recent 06/24/2020 CT suggested demonstrated what appeared to be a relative transition point small bowel RLQ raising possibility of a of mild partial distal small bowel obstruction component here, (axial image 72) with diffuse small bowel wall thickening associated--. These CT features not typical for a uncomplicated ileus; thus continue follow-up suggested and correlation UPRIGHT CXR: No free air Note subtle patchy density towards the left base project over the left anterior 5th rib end.-minimal airspace disease which may reflect mild atelectasis, cannot exclude early infiltrate. Warrants ongoing follow-up as well . IMPRESSION: 1... Persistent generous dilated small-bowel loops with slight improvement since yesterday Findings suggest slowly resolving ileus, with possible resolving minimal partial distal small bowel obstruction component-. Overall very slight improvement since she yesterday with further passage of radiopaque contrast elements through large and small bowel. warrants ongoing follow-up 2... Suggestion scant airspace disease towards left lung base-most likely atelectasis. Less likely scant early infiltrate.. Benefit from follow-up as well Dictated by: Gurpreet Gauthier MD 06/27/2020 09:50 Gurpreet Gauthier MD in [facility] 06/27/2020 09:50
[2020-06-27 08:00] VITALS: BP 146/92; PULSE 93; RESP 16; TEMP 36.8; O2SAT 96
[2020-06-27 08:36] LABS: Basophils % 0.4 % (0.1-2.0); Eosinophils # 0.4 K/mm3 (0.0-0.4); Eosinophils % 3.6 % (0.1-12.0); Hematocrit 34.2 % (37.0-47.0); Hemoglobin 11.4 g/dL (12.2-16.2); Lymphocytes # 2.1 K/mm3 (0.7-4.5); Lymphocytes % 20.7 % (10-50); Mean Corpuscular HGB Conc 33.2 g/dL (31.8-35.4); Mean Corpuscular Hemoglobin 29.4 pg (27.0-31.2); Mean Corpuscular Volume 88.6 fl (81-99); Mean Platelet Volume 7.3 fl (7.4-10.4); Monocytes # 0.5 K/mm3 (0.1-1.0); Monocytes % 5.1 % (1.7-9.3); Neutrophils # 7.1 K/mm3 (1.8-7.8); Neutrophils % 70.3 % (37.0-80.0); Platelet Count 654 K/mm3 (142-424); Red Blood Count 3.87 M/mm3 (4.20-5.40); Red Cell Distribution Width 14.1 % (11.5-17.5); White Blood Count 10.2 K/mm3 (4.8-10.8)
[2020-06-27 08:41] LABS: Chloride 99 mmol/L (98-107); Sodium 136 mmol/L (136-145)
--- NOTE | 2020-06-27 08:41 | HMH.ACPN2 ---
Internal Medicine - PN: Subj *Date: 06/27/20 *Time: 12:04 Interval history: Patient did well overnight, has tolerated clear liquid diet. States this morning however she is feeling nauseous. No vomiting but has had loose stools. Stool sample obtained yesterday that showed no infectious etiology. Repeat x-ray of abdomen this morning showing contrast moving his way through her large intestine, no yelena obstruction but she does have some air-fluid levels. Appearance continues to be consistent with ileus. No fever, shortness of breath, chest pain, confusion. General abdominal pain is stable. Exam Vital signs and Labs for Last 24 Hours: Temp Pulse Resp BP Pulse Ox 98.4 F 86 16 150/78 H 94 L 06/27/20 05:28 06/27/20 05:28 06/27/20 05:28 06/27/20 05:28 06/27/20 05:28 Laboratory Results - last 24 hr 06/26/20 14:20: Stl Aeromonas (PCR) Not detected, Stl C. cayetanensis PCR Not detected, Stool Rotavirus (PCR) Not detected, Stl Adenov F 40/41 PCR Not detected, Stool Astrovirus (PCR) Not detected, Stool Campylobacter PCR Not detected, Stl C.difficile Tox PCR Not detected, Stool Cryptosporidium PCR Not detected, Stl E.coli Shiga Tox PCR Not detected, Stool E coli O157 PCR Not detected, Stl Enterotoxigenic E PCR Not detected, Stool EPEC (PCR) Not detected, Stool EAEC (PCR) Not detected, Stl E. histolytica PCR Not detected, Stool Giardia Lamblia PCR Not detected, Stool Salmonella PCR Not detected, Stool Sapovirus (PCR) Not detected, Stl P. shigelloides PCR Not detected, Stl Shigella/EIEC PCR Not detected, St Y.enterocolitica PCR Not detected, Stool Vibrio (PCR) Not detected, Stl Vibrio cholerae PCR Not detected, Stl Norovirus GI/GII PCR Not detected 06/27/20 07:45: WBC 10.2 D, RBC 3.87 L, Hgb 11.4 L, Hct 34.2 L, MCV 88.6, MCH 29.4, MCHC 33.2, RDW 14.1, Plt Count 654 H, MPV 7.3 L, Neut % (Auto) 70.3, Lymph % (Auto) 20.7, [place] % (Auto) 5.1, Eos % (Auto) 3.6, Baso % (Auto) 0.4, Neut # (Auto) 7.1, Lymph # (Auto) 2.1, [place] # (Auto) 0.5, Eos # (Auto) 0.4, Baso # (Auto) 0.0 I & O for Last 24 hours: Intake & Output 06/24/20 06/25/20 06/26/20 06/27/20 23:59 23:59 23:59 23:59 Intake Total 1225 / 1235 2257 / 2257 1408 / 1408 Output Total 1350 / 1350 600 / 1600 1600 / 1600 Balance -125 / -115 1657 / 657 -192 / -192 Weight 80.286 kg 80.286 kg 80.739 kg 86.239 kg Microbiology Reports for the Last 24 Hours: Microbiology 06/25/20 06:35 Urine,Clean Catch Urine Culture - Preliminary Narrative: - Constitutional no acute distress - *Routine HEENT Exam Head: Present: normocephalic Eye: Present: EOMI, PERRL ENT: Present: mucous membranes moist - *Routine Neck Exam Present: supple. Absent: lymphadenopathy - *Routine Respiratory Exam Present: CTA bilaterally - *Routine Cardiovascular Exam Present: RRR - *Routine Abdominal Exam Present: soft, tenderness (Most prominent across upper abdomen) Comments: Bowel sounds hyperactive. Clean dry and intact midline lower abdominal incision from umbilicus to pubis. No erythema or warmth - *Routine Extremities Exam Absent: cyanosis, clubbing, edema - *Routine Skin Exam Present: warm. Absent: rash - *Routine Neurological Exam Present: alert, oriented X3 Assessment and Plan (1) Abdominal pain Current visit: Yes Status: Acute Qualifiers: Abdominal location: epigastric Qualified Code(s): R10.13 - Epigastric pain Category: Medical Code(s): R10.9 - Unspecified abdominal pain (2) Nausea vomiting and diarrhea Current visit: Yes Status: Acute Category: Medical Code(s): R11.2 - Nausea with vomiting, unspecified; R19.7 - Diarrhea, unspecified (3) SBO (small bowel obstruction) Current visit: Yes Status: Ruled-out Category: Medical Code(s): K56.609 - Unspecified intestinal obstruction, unspecified as to partial versus complete obstruction (4) Enteritis Current visit: Yes Status: Acute Category: Medical Code(s): K52.9 - Noninfec
[2020-06-27 08:44] LABS: Alanine Aminotransferase 12 U/L (12-78); Albumin Level 3.2 g/dl (3.5-5.0); Albumin/Globulin Ratio 1.3 (1.1-1.8); Alkaline Phosphatase 73 U/L (38-126); Anion Gap 10.8 mEq/L (5-15); Aspartate Amino Transferase 21 U/L (14-36); Blood Urea Nitrogen 3 mg/dl (7-17); Calcium 8.5 mg/dl (8.4-10.2); Carbon Dioxide 29 mmol/L (22.0-30.0); Creatinine Clearance Estimated 224 mL/min (50-200); Estimated Glomerular Filt Rate 168 ml/min (>60); GFR (African American) 203 ML/MIN (>60); Globulin 2.5 g/dL (1.3-3.2); Glucose 126 mg/dl (74-100); Total Protein,Serum 5.7 g/dl (6.3-8.2)
--- NOTE | 2020-06-27 09:00 | P.PN_ITS ---
Subjective Patient reports: still having pain, nausea Progress Note: A&P (1) Abdominal pain Status: Acute Current Visit: Yes (2) Nausea vomiting and diarrhea Status: Acute Current Visit: Yes (3) SBO (small bowel obstruction) Status: Ruled-out Assessment and plan: No mechanical obstruction per small bowel follow-through and subsequent plain films. Current Visit: Yes (4) Enteritis Status: Acute Assessment and plan: Ongoing management as per primary service Current Visit: Yes Exam Vital signs and Labs for Last 24 Hours: Temp Pulse Resp BP Pulse Ox 98.3 F 93 H 16 146/92 H 96 06/27/20 08:00 06/27/20 08:00 06/27/20 08:00 06/27/20 08:00 06/27/20 08:00 Laboratory Results - last 24 hr 06/26/20 14:20: Stl Aeromonas (PCR) Not detected, Stl C. cayetanensis PCR Not detected, Stool Rotavirus (PCR) Not detected, Stl Adenov F 40/41 PCR Not detected, Stool Astrovirus (PCR) Not detected, Stool Campylobacter PCR Not detected, Stl C.difficile Tox PCR Not detected, Stool Cryptosporidium PCR Not detected, Stl E.coli Shiga Tox PCR Not detected, Stool E coli O157 PCR Not detected, Stl Enterotoxigenic E PCR Not detected, Stool EPEC (PCR) Not detected, Stool EAEC (PCR) Not detected, Stl E. histolytica PCR Not detected, Stool Giardia [place] PCR Not detected, Stool Salmonella PCR Not detected, Stool Sapovirus (PCR) Not detected, Stl P. shigelloides PCR Not detected, Stl Shigella/EIEC PCR Not detected, St Y.enterocolitica PCR Not detected, Stool Vibrio (PCR) Not detected, Stl Vibrio cholerae PCR Not detected, Stl Norovirus GI/GII PCR Not detected 06/27/20 07:45: WBC 10.2 D, RBC 3.87 L, Hgb 11.4 L, Hct 34.2 L, MCV 88.6, MCH 29.4, MCHC 33.2, RDW 14.1, Plt Count 654 H, MPV 7.3 L, Neut % (Auto) 70.3, Lymph % (Auto) 20.7, [place] % (Auto) 5.1, Eos % (Auto) 3.6, Baso % (Auto) 0.4, Neut # (Auto) 7.1, Lymph # (Auto) 2.1, [place] # (Auto) 0.5, Eos # (Auto) 0.4, Baso # (Auto) 0.0 I & O for Last 24 hours: Intake & Output 06/24/20 06/25/20 06/26/20 06/27/20 11:59 11:59 11:59 11:59 Intake Total 583 / 583 1752 / 1752 3175 / 3175 Output Total 600 / 600 750 / 750 2200 / 2200 Balance - 1002 / 1002 975 / 975 Weight 177 lb 178 lb 190 lb 2 oz Microbiology Reports for the Last 24 Hours: Microbiology 06/25/20 06:35 Urine,Clean Catch Urine Culture - Preliminary - Constitutional no acute distress - *Routine Respiratory Exam Absent: respiratory distress - *Routine Cardiovascular Exam Present: RRR - *Routine Abdominal Exam Present: soft
[2020-06-27 09:22] LABS: Potassium 2.8 mmoL/L (3.5-5.1)
--- NOTE | 2020-06-27 11:19 | PC.NURSE ---
PATIENT C/O PAIN WITH KCL IV RUNS. CHANGED TO RALPH Healy
--- NOTE | 2020-06-27 15:14 | PC.NURSE ---
PATIENT ASLEEP IN BED WITH SAFETY MEASURES IN PLACE. PATIENTS DAUGHTER AT BEDSIDE. PATIENT ON RA- NO C/O SOA OR COUGH. PATIENT A&OX3. PATIENT WITH MILD NAUSEA TODAY PHENERGRAN ADMIN PER DEC. PATIENT WITH MILD PAIN-PRN MORPHINE ADMIN PER DEC TODAY. NO C/O PAINFUL/BURNING URINATION PATIENT AMBULATES TO RESTROOM AND VOIDS. AWAITING A URINE CULTURE SPECIMEN. SKIN INTACT. INCISION TO LOWER ABDOMINAL ABOVE PUBIS REGION WITH STERI STRIPS CDI NO DRAINAGE NOTED. NO ISSUES AT THIS TIME WILL CONT TO MONITOR.
[2020-06-27 16:00] VITALS: BP 166/78; PULSE 93; RESP 16; TEMP 37.1; O2SAT 98
--- NOTE | 2020-06-27 17:53 | PC.NURSE ---
URINE SPECIMEN COLLECTED AND SENT TO LAB
[2020-06-27 20:00] VITALS: BP 149/82; PULSE 86; RESP 17; TEMP 37.2; O2SAT 96
--- NOTE | 2020-06-27 20:40 | PC.NURSE ---
Pt refused taking 2100 dose of Potassium due to nausea. This nurse educated the pt on the importance of taking the potassium due to her low lab levels. Pt's response was I will just throw it up, I know it's important but I just cant and began to cry.
--- NOTE | 2020-06-28 02:58 | PC.NURSE ---
Pt A&Ox4 has rested well this shift. At the beginning of shift pt was c/o abdominal pain and nausea. PRN medications were given per MAR and upon reassessment pt stated that she was no longer in pain or nauseous. Abdomen remains soft and tender during palpation. Pt has ambulated to the bathroom independently. Gait and balance remain satisfactory. Pt has stated she has had 0 episodes of diarrhea so far this shift. Pt continues to tolerate RA appropriately and lung sounds remain clear t/o. Abdominal incision from prior hysterectomy remains CDI with steri strips intact. Call light is within reach. No other acute changes at this time. Will continue to monitor.
[2020-06-28 04:46] VITALS: BP 164/83; PULSE 86; RESP 17; TEMP 37.1; O2SAT 91
[2020-06-28 05:06] VITALS: BMI 28.1
[2020-06-28 07:04] LABS: Basophils # 0.1 K/mm3 (0-0.2); Basophils % 0.7 % (0.1-2.0); Eosinophils # 0.3 K/mm3 (0.0-0.4); Eosinophils % 4.2 % (0.1-12.0); Hematocrit 33.5 % (37.0-47.0); Hemoglobin 11.6 g/dL (12.2-16.2); Mean Corpuscular HGB Conc 34.7 g/dL (31.8-35.4); Mean Corpuscular Hemoglobin 29.7 pg (27.0-31.2); Mean Corpuscular Volume 85.6 fl (81-99); Mean Platelet Volume 7.6 fl (7.4-10.4); Monocytes # 0.5 K/mm3 (0.1-1.0); Neutrophils # 5.1 K/mm3 (1.8-7.8); Neutrophils % 64.1 % (37.0-80.0); Red Blood Count 3.92 M/mm3 (4.20-5.40); Red Cell Distribution Width 14.4 % (11.5-17.5)
[2020-06-28 07:06] LABS: Platelet Count 609 K/mm3 (142-424)
[2020-06-28 07:07] LABS: Chloride 99 mmol/L (98-107)
[2020-06-28 07:08] LABS: Potassium 3.3 mmoL/L (3.5-5.1); Sodium 135 mmol/L (136-145)
[2020-06-28 07:10] LABS: Alanine Aminotransferase 12 U/L (12-78); Aspartate Amino Transferase 23 U/L (14-36); Bilirubin,Total 0.8 mg/dl (0.2-1.3); Blood Urea Nitrogen 2 mg/dl (7-17); Creatinine Clearance Estimated 207 mL/min (50-200); Estimated Glomerular Filt Rate 168 ml/min (>60); GFR (African American) 203 ML/MIN (>60)
[2020-06-28 07:11] LABS: Albumin Level 3.1 g/dl (3.5-5.0); Albumin/Globulin Ratio 1.2 (1.1-1.8); Alkaline Phosphatase 82 U/L (38-126); Anion Gap 10.3 mEq/L (5-15); Calcium 8.8 mg/dl (8.4-10.2); Carbon Dioxide 29 mmol/L (22.0-30.0); Globulin 2.5 g/dL (1.3-3.2); Total Protein,Serum 5.6 g/dl (6.3-8.2)
[2020-06-28 07:16] LABS: Glucose 97 mg/dl (74-100)
[2020-06-28 07:59] VITALS: BP 147/67; PULSE 94; RESP 20; TEMP 36.8; O2SAT 96
[2020-06-28 08:00] VITALS: O2SAT 96
--- NOTE | 2020-06-28 08:22 | HMH.ACPN2 ---
Internal Medicine - PN: Subj *Date: 06/28/20 *Time: 08:22 Interval history: Patient did well overnight. No fever, vomiting, diarrhea. Is tolerating p.o. intake with clear and full liquid diet. Still having some intermittent pain but overall doing better. Passing flatus. Denies chest pain, shortness of breath Exam Vital signs and Labs for Last 24 Hours: Temp Pulse Resp BP Pulse Ox 98.2 F 94 H 20 147/67 H 96 06/28/20 07:59 06/28/20 07:59 06/28/20 07:59 06/28/20 07:59 06/28/20 07:59 Laboratory Results - last 24 hr 06/27/20 07:45: WBC 10.2 D, RBC 3.87 L, Hgb 11.4 L, Hct 34.2 L, MCV 88.6, MCH 29.4, MCHC 33.2, RDW 14.1, Plt Count 654 H, MPV 7.3 L, Neut % (Auto) 70.3, Lymph % (Auto) 20.7, [place] % (Auto) 5.1, Eos % (Auto) 3.6, Baso % (Auto) 0.4, Neut # (Auto) 7.1, Lymph # (Auto) 2.1, [place] # (Auto) 0.5, Eos # (Auto) 0.4, Baso # (Auto) 0.0 06/27/20 07:45: Sodium 136, Potassium 2.8 L*, Chloride 99, Carbon Dioxide 29, Anion Gap 10.8, BUN 3 L D, Creatinine 0.40 L D, Estimated Creat Clear 224, Estimated GFR 168, Est GFR ( Amer) 203 D, Glucose 126 H, Calcium 8.5, Total Bilirubin 1.0, AST 21, ALT 12 D, Alkaline Phosphatase 73, Total Protein 5.7 L, Albumin 3.2 L, Globulin 2.5, Albumin/Globulin Ratio 1.3 06/28/20 06:14: WBC 8.0, RBC 3.92 L, Hgb 11.6 L, Hct 33.5 L, MCV 85.6, MCH 29.7, MCHC 34.7, RDW 14.4, Plt Count 609 H, MPV 7.6, Neut % (Auto) 64.1, Lymph % (Auto) 25.0, [place] % (Auto) 6.0, Eos % (Auto) 4.2, Baso % (Auto) 0.7, Neut # (Auto) 5.1, Lymph # (Auto) 2.0, [place] # (Auto) 0.5, Eos # (Auto) 0.3, Baso # (Auto) 0.1 06/28/20 06:14: Sodium 135 L, Potassium 3.3 L, Chloride 99, Carbon Dioxide 29, Anion Gap 10.3, BUN 2 L D, Creatinine 0.40 L, Estimated Creat Clear 207, Estimated GFR 168, Est GFR ( Amer) 203, Glucose 97 D, Calcium 8.8, Magnesium 2.0, Total Bilirubin 0.8, AST 23, ALT 12, Alkaline Phosphatase 82, Total Protein 5.6 L, Albumin 3.1 L, Globulin 2.5, Albumin/Globulin Ratio 1.2 I & O for Last 24 hours: Intake & Output 06/25/20 06/26/20 06/27/20 06/28/20 23:59 23:59 23:59 23:59 Intake Total 1225 / 1235 2257 / 2257 5026 / 5266 3203 / 3203 Output Total 1350 / 1350 600 / 1600 2049 Balance -125 / -115 1657 / 657 2976 / 3216 3203 / 3203 Weight 80.286 kg 80.739 kg 86.239 kg 79.52 kg Microbiology Reports for the Last 24 Hours: Microbiology 06/25/20 06:35 Urine,Clean Catch Urine Culture - Final Multiple organisms, suggests contamination. Narrative: - Constitutional no acute distress - *Routine HEENT Exam Head: Present: normocephalic Eye: Present: EOMI, PERRL ENT: Present: mucous membranes moist - *Routine Neck Exam Present: supple. Absent: lymphadenopathy - *Routine Respiratory Exam Present: CTA bilaterally - *Routine Cardiovascular Exam Present: RRR - *Routine Abdominal Exam Abdomen remains soft, tenderness improving. Bowel sounds active. Surgical incision remains clean dry and intact in lower abdomen. - *Routine Extremities Exam Absent: cyanosis, clubbing, edema - *Routine Skin Exam Present: warm. Absent: rash - *Routine Neurological Exam Present: alert, oriented X3 Assessment and Plan (1) Abdominal pain Current visit: Yes Status: Acute Qualifiers: Abdominal location: epigastric Qualified Code(s): R10.13 - Epigastric pain Category: Medical Code(s): R10.9 - Unspecified abdominal pain (2) Nausea vomiting and diarrhea Current visit: Yes Status: Acute Category: Medical Code(s): R11.2 - Nausea with vomiting, unspecified; R19.7 - Diarrhea, unspecified (3) SBO (small bowel obstruction) Current visit: Yes Status: Ruled-out Category: Medical Code(s): K56.609 - Unspecified intestinal obstruction, unspecified as to partial versus complete obstruction (4) Enteritis Current visit: Yes Status: Acute Category: Medical Code(s): K52.9 - Noninfective gastroenteritis and colitis, unspecified - Assessm
--- NOTE | 2020-06-28 09:08 | HMH.GSPN ---
Subjective Patient reports: feels better Narrative: The patient states that she is doing better and hopes to go home today . Progress Note: A&P (1) Abdominal pain Status: Acute Current Visit: Yes (2) Nausea vomiting and diarrhea Status: Acute Current Visit: Yes (3) SBO (small bowel obstruction) Status: Ruled-out Assessment and plan: No definitive mechanical obstruction noted on CT scan. No obstruction noted on small bowel follow-through/subsequent films. Current Visit: Yes (4) Enteritis Status: Acute Assessment and plan: No obvious infectious etiology determined by diarrhea panel. She is currently improving. Continue management as per primary service Current Visit: Yes Exam Vital signs and Labs for Last 24 Hours: Temp Pulse Resp BP Pulse Ox 98.2 F 94 H 20 147/67 H 96 06/28/20 07:59 06/28/20 07:59 06/28/20 07:59 06/28/20 07:59 06/28/20 07:59 Laboratory Results - last 24 hr 06/27/20 07:45: Sodium 136, Potassium 2.8 L*, Chloride 99, Carbon Dioxide 29, Anion Gap 10.8, BUN 3 L D, Creatinine 0.40 L D, Estimated Creat Clear 224, Estimated GFR 168, Est GFR ( Amer) 203 D, Glucose 126 H, Calcium 8.5, Total Bilirubin 1.0, AST 21, ALT 12 D, Alkaline Phosphatase 73, Total Protein 5.7 L, Albumin 3.2 L, Globulin 2.5, Albumin/Globulin Ratio 1.3 06/28/20 06:14: WBC 8.0, RBC 3.92 L, Hgb 11.6 L, Hct 33.5 L, MCV 85.6, MCH 29.7, MCHC 34.7, RDW 14.4, Plt Count 609 H, MPV 7.6, Neut % (Auto) 64.1, Lymph % (Auto) 25.0, [place] % (Auto) 6.0, Eos % (Auto) 4.2, Baso % (Auto) 0.7, Neut # (Auto) 5.1, Lymph # (Auto) 2.0, [place] # (Auto) 0.5, Eos # (Auto) 0.3, Baso # (Auto) 0.1 06/28/20 06:14: Sodium 135 L, Potassium 3.3 L, Chloride 99, Carbon Dioxide 29, Anion Gap 10.3, BUN 2 L D, Creatinine 0.40 L, Estimated Creat Clear 207, Estimated GFR 168, Est GFR ( Amer) 203, Glucose 97 D, Calcium 8.8, Magnesium 2.0, Total Bilirubin 0.8, AST 23, ALT 12, Alkaline Phosphatase 82, Total Protein 5.6 L, Albumin 3.1 L, Globulin 2.5, Albumin/Globulin Ratio 1.2 I & O for Last 24 hours: Intake & Output 06/25/20 06/26/20 06/27/20 06/28/20 11:59 11:59 11:59 11:59 Intake Total 583 / 583 1752 / 1752 3415 / 3415 6321 / 6321 Output Total 600 / 600 750 / 750 2200 / 2200 450 / 450 Balance - 1002 / 1002 1215 / 1215 5871 / 5871 Weight 177 lb 178 lb 190 lb 2 oz 175 lb 5 oz Microbiology Reports for the Last 24 Hours: Microbiology 06/25/20 06:35 Urine,Clean Catch Urine Culture - Final Multiple organisms, suggests contamination. - Constitutional no acute distress - *Routine Respiratory Exam Absent: respiratory distress - *Routine Cardiovascular Exam Present: RRR
--- NOTE | 2020-06-28 11:41 | HMH.DCSUM ---
General - General Admission date:: 06/24/20 Discharge date: 06/28/20 HPI HPI: This is a 50-year-old female who recently was discharged from the [facility] after undergoing hysterectomy. She had initially progressed well but did have episodes of constipation and diarrhea postoperatively. Over the past few days she has had increasing abdominal discomfort and nausea. She presented to the emergency department at [facility] where she was diagnosed with small bowel obstruction versus enteritis per CT scan. The [facility] was on divert and unable to accept the patient in transfer. This morning she continues to be nauseous but states that she has had no emesis. She claims to have had a fairly normal bowel movement either yesterday or the day before . She has not had a bowel movement since and is currently not passing flatus. Above note per surgery consult. Patient had gynecologic surgery at [facility] and fortunately biopsies of a very suspicious ovarian mass are reportedly negative. Medical record deficit noted, we will try to get actual records and path reports today. Surgery note as above. Patient has otherwise no surgical history except for a laparoscopic procedure greater than 15 years ago with removal of uterine fibroids. Hospital Course Hospital Course: 50-year-old female admitted for concern for small bowel obstruction, nausea, intolerance of p.o. intake. Made n.p.o. and surgery was consulted. Imaging consistent with small bowel obstruction. Upper GI with small bowel follow-through performed that showed resolution of obstruction. Patient symptoms improved and she was advanced on her diet from clear liquids to bland through the course of her hospitalization. Tolerated advancement of her diet with control of her nausea using Phenergan. Overall did well through the course of her admission advancing to the point that she was stable to go home. Tolerating p.o. fluids well. Ambulating independently. Voiding without difficulty. Medically stable for discharge home to continue to convalesce in the outpatient setting. Plan to follow-up with our office in the coming week to establish care and assess progress. Objective Vital signs: Temp Pulse Resp BP Pulse Ox 98.2 F 94 H 20 147/67 H 96 06/28/20 07:59 06/28/20 07:59 06/28/20 07:59 06/28/20 07:59 06/28/20 08:00 Narrative: - Constitutional no acute distress - *Routine HEENT Exam Head: Present: normocephalic Eye: Present: EOMI, PERRL ENT: Present: mucous membranes moist - *Routine Neck Exam Present: supple. Absent: lymphadenopathy - *Routine Respiratory Exam Present: CTA bilaterally - *Routine Cardiovascular Exam Present: RRR - *Routine Abdominal Exam Abdomen remains soft, tenderness minimal. Bowel sounds active. Surgical incision remains clean dry and intact in lower abdomen. - *Routine Extremities Exam Absent: cyanosis, clubbing, edema - *Routine Skin Exam Present: warm. Absent: rash - *Routine Neurological Exam Present: alert, oriented X3 Results Labs on day of discharge: Labs from last 24 hours 06/28/20 06/28/20 06:14 06:14 WBC 8.0 RBC 3.92 L Hgb 11.6 L Hct 33.5 L MCV 85.6 MCH 29.7 MCHC 34.7 RDW 14.4 Plt Count 609 H MPV 7.6 Neut % (Auto) 64.1 Lymph % (Auto) 25.0 [place] % (Auto) 6.0 Eos % (Auto) 4.2 Baso % (Auto) 0.7 Neut # (Auto) 5.1 Lymph # (Auto) 2.0 [place] # (Auto) 0.5 Eos # (Auto) 0.3 Baso # (Auto) 0.1 Sodium 135 L Potassium 3.3 L Chloride 99 Carbon Dioxide 29 Anion Gap 10.3 BUN 2 L D Creatinine 0.40 L Estimated Creat Clear 207 Estimated GFR 168 Est GFR ( Amer) 203 Glucose 97 D Calcium 8.8 Magnesium 2.0 Total Bilirubin 0.8 AST 23 ALT 12 Alkaline Phosphatase 82 Total Protein 5.6 L Albumin 3.1 L Globulin 2.5 Albumin/Globulin Ratio 1.2 DS: D
--- NOTE | 2020-06-28 13:31 | HMH.PHAINT ---
DISCHARGE COUNSELING COMPLETED ON PATIENT. [facility] [place]. PATIENT IS TO CONTINUE ALL HOME MEDICATIONS WITH THE EXCEPTION OF IBUPROFEN AND LOVENOX. PATIENT VERBALIZED UNDERSTANDING AND HAD NO QUESTIONS AT THIS TIME. -DARYA ACHARYA, JEVOND
== END 2020-06-28 16:45 | disposition home or self-care (01) ==
LOC: ER 22:25 → 2ND 22:47
PROVIDERS: Emergency Medicine; Internal Medicine Adolescent Medicine; Surgery; Admitting Provider Internal Medicine Adolescent Medicine; Emergency Provider Emergency Medicine; Visit Provider Internal Medicine Adolescent Medicine
DX: K52.9 Noninfective gastroenteritis and colitis, unspecified (principal); R10.9 Unspecified abdominal pain
CPT/HCPCS: 36415; 74021; 74177; 74250; 80048; 80053; 81001; 83605; 83690; 83735; 85007; 85025; 86328; 87086; 87507; 96365; 96375; 99285; G0378; J2405; Q9967

== ENCOUNTER → 2021-03-03 10:59 | Outpatient (CLI) | payer OTHER, SELFPAY ==
[2021-03-03 11:37] LABS: Basophils # 0.1 K/mm3 (0-0.2); Basophils % 1.2 % (0.1-2.0); Eosinophils # 0.4 K/mm3 (0.0-0.4); Eosinophils % 4.2 % (0.1-12.0); Hematocrit 45.1 % (37.0-47.0); Hemoglobin 15.1 g/dL (12.2-16.2); Lymphocytes # 3.4 K/mm3 (0.7-4.5); Lymphocytes % 40.6 % (10-50); Mean Corpuscular HGB Conc 33.5 g/dL (31.8-35.4); Mean Corpuscular Hemoglobin 28.8 pg (27.0-31.2); Mean Corpuscular Volume 86.1 fl (81-99); Mean Platelet Volume 7.5 fl (7.4-10.4); Monocytes # 0.3 K/mm3 (0.1-1.0); Neutrophils # 4.2 K/mm3 (1.8-7.8); Neutrophils % 50.2 % (37.0-80.0); Platelet Count 285 K/mm3 (142-424); Red Blood Count 5.24 M/mm3 (4.20-5.40); Red Cell Distribution Width 13.3 % (11.5-17.5); White Blood Count 8.4 K/mm3 (4.8-10.8)
[2021-03-03 11:50] LABS: Hemoglobin A1C 5.4 % (4.0-6.0)
[2021-03-03 12:21] LABS: Chloride 106 mmol/L (98-107); Potassium 3.9 mmoL/L (3.5-5.1); Sodium 140 mmol/L (136-145)
[2021-03-03 12:23] LABS: Blood Urea Nitrogen 5 mg/dl (7-17); Estimated Glomerular Filt Rate 88 ml/min (>60); GFR (African American) 106 ML/MIN (>60)
[2021-03-03 12:24] LABS: Alanine Aminotransferase 20 U/L (12-78); Albumin Level 4.7 g/dl (3.5-5.0); Alkaline Phosphatase 103 U/L (38-126); Anion Gap 11.9 mEq/L (5-15); Aspartate Amino Transferase 27 U/L (14-36); Bilirubin,Total 0.5 mg/dl (0.2-1.3); Calcium 9.8 mg/dl (8.4-10.2); Carbon Dioxide 26 mmol/L (22.0-30.0); Chol/HDL Ratio 3.5 (1-3.5); Cholesterol 238 mg/dl (140-200); Globulin 2.4 g/dL (1.3-3.2); Glucose 99 mg/dl (74-100); HDL Cholesterol 68 mg/dl (40-60); Total Protein,Serum 7.1 g/dl (6.3-8.2); Triglycerides 173 mg/dl (30-150); VLDL Cholesterol 35 mg/dL (0-40)
[2021-03-03 12:36] LABS: Direct LDL Cholesterol 119.39 mg/dL (100-129)
[2021-03-03 12:58] LABS: Thyroid Stimulating Hormone 1.77 uIU/mL (0.465-4.68)
[2021-03-03 14:38] LABS: Vitamin B12 554 pg/mL (239-931)
== END ==
PROVIDERS: Visit Provider Internal Medicine Adolescent Medicine
DX: Z00.00 Encounter for general adult medical examination without abnormal findings (principal); R53.81 Other malaise; R53.83 Other fatigue; Z86.39 Personal history of other endocrine, nutritional and metabolic disease
CPT/HCPCS: 36415; 80053; 80061; 82607; 83036; 84443; 85025

== ENCOUNTER → 2022-06-01 10:31 | Outpatient (CLI) | payer BC, OTHER, SELFPAY ==
--- NOTE | 2022-06-01 10:37 | CT_ITS ---
FINAL REPORT TECHNIQUE: After the administration of oral and intravenous contrast, axial images were obtained through the abdomen and pelvis by computed tomography. The study was performed with techniques to keep radiation dose as low as reasonably achievable, (ALARA). Individual dose reduction techniques using automated exposure control or adjustment of mA and/or kV according to the patient's size were employed. CLINICAL HISTORY: ABD WALL MASS,ABD PAIN COMPARISON: June 24, 2020 FINDINGS: Abdomen: The lung bases are clear. The liver parenchyma is homogeneous. The previously noted ascites has resolved. A small stone is seen in the gallbladder. The spleen, pancreas, adrenals and kidneys appear unremarkable. The aorta is normal in caliber. There is no free fluid or adenopathy. Pelvis: The appendix appears unremarkable. There is a large hernia of the anterior abdominal wall containing multiple loops of nondilated small bowel. The urinary bladder is unremarkable. There is no free fluid or adenopathy. IMPRESSION: Resolution of the previously noted ascites. Resolution of the previously noted dilated loops of fluid-filled small bowel. Hernia of the midline anterior pelvic wall which is new since the previous exam. Reviewed, Interpreted and Dictated by Robin Jones MD Transcribed by Yudi Mcrae Authenticated and [facility]
[2022-06-01 11:32] LABS: Basophils # 0.1 K/mm3 (0-0.2); Basophils % 1.3 % (0.1-2.0); Eosinophils # 0.4 K/mm3 (0.0-0.4); Eosinophils % 5.6 % (0.1-12.0); Hemoglobin 14.4 g/dL (12.2-16.2); Lymphocytes # 3.1 K/mm3 (0.7-4.5); Lymphocytes % 44.9 % (10-50); Mean Corpuscular HGB Conc 31.2 g/dL (31.8-35.4); Mean Corpuscular Hemoglobin 28.7 pg (27.0-31.2); Mean Corpuscular Volume 91.8 fl (81-99); Mean Platelet Volume 8.1 fl (7.4-10.4); Monocytes # 0.3 K/mm3 (0.1-1.0); Monocytes % 3.8 % (1.7-9.3); Neutrophils % 44.4 % (37.0-80.0); Platelet Count 288 K/mm3 (142-424); Red Blood Count 5.02 M/mm3 (4.20-5.40); Red Cell Distribution Width 13.6 % (11.5-17.5); White Blood Count 6.8 K/mm3 (4.8-10.8)
[2022-06-01 12:11] LABS: Erythrocyte Sedimentation Rate 5 mm/hr (0-30)
[2022-06-01 12:47] LABS: Alanine Aminotransferase 29 U/L (12-78); Albumin Level 3.8 g/dl (3.5-5.0); Albumin/Globulin Ratio 1.7 (1.1-1.8); Alkaline Phosphatase 107 U/L (38-126); Anion Gap 9.2 mEq/L (5-15); Aspartate Amino Transferase 35 U/L (14-36); Bilirubin,Total 0.4 mg/dl (0.2-1.3); Blood Urea Nitrogen 8 mg/dl (7-17); Calcium 9.5 mg/dl (8.4-10.2); Carbon Dioxide 24 mmol/L (22.0-30.0); Chloride 107 mmol/L (98-107); Estimated Glomerular Filt Rate 104 ml/min (>60); GFR (African American) 126 ML/MIN (>60); Globulin 2.3 g/dL (1.3-3.2); Glucose 89 mg/dl (74-100); Potassium 4.2 mmoL/L (3.5-5.1); Sodium 136 mmol/L (136-145); Total Protein,Serum 6.1 g/dl (6.3-8.2)
[2022-06-01 13:03] LABS: Triiodothryronine (T3) Uptake 28 % (23.5-40.5)
[2022-06-01 13:17] LABS: Thyroid Stimulating Hormone 2.84 uIU/mL (0.465-4.68)
[2022-06-01 13:42] LABS: Free Thyroxine Index 2.4 ug/dL (5.93-13.13); T4 (Thyroxine) 8.6 ug/dl (5.53-11.0)
[2022-06-02 13:43] LABS: Anti-Centromere B Antibodies <0.2 AI (0.0-0.9); Anti-DNA (DS) Ab Qn <1 IU/mL (0-9); Anti-Jo-1 <0.2 AI (0.0-0.9); Anti-Smith Antibody <0.2 AI (0.0-0.9); Antichromatin Antibodies <0.2 AI (0.0-0.9); Antiscleroderma-70 Antibodies <0.2 AI (0.0-0.9); RNP Antibodies <0.2 AI (0.0-0.9); Sjogren's Anti-SS-A <0.2 AI (0.0-0.9); Sjogren's Anti-SS-B <0.2 AI (0.0-0.9)
== END ==
PROVIDERS: PCP Internal Medicine Adolescent Medicine; Visit Provider Internal Medicine Adolescent Medicine
DX: R10.84 Generalized abdominal pain (principal); R22.2 Localized swelling, mass and lump, trunk; R53.81 Other malaise; R53.83 Other fatigue; M12.9 Arthropathy, unspecified
CPT/HCPCS: 36415; 74177; 80053; 84436; 84443; 84479; 85025; 85651; 86140; 86225; 86235; Q9967